=== PATIENT | female | born 1965 | race Caucasian/White ===

== ENCOUNTER 2025-05-01 07:59 | Emergency (ER) | payer OTHER, SELFPAY ==
[2025-05-01] VITALS (8 sets, daily range): BP systolic 119–188; BP diastolic 70–107; BMI 31.7
--- NOTE | 2025-05-01 08:31 | ED.GENMED ---
History of Present Illness
General
Chief Complaint: Back Pain
Source: patient
Exam Limitations: none
Time Seen by Provider: 05/01/25 08:08
Nursing documentation reviewed up to this point in time: agreed with
History of Present Illness
History of Present Illness:
The patient is a 59-year-old female with a past medical history of kidney stones who reports fairly sudden onset of left-sided abdominal pain and left lower back pain that woke her up out of her sleep at 5 AM this morning. Patient reports pain has
been fairly constant. She describes it as severe. Nothing makes it better or worse. She denies any nausea, vomiting, fevers and chills. She denies urinary symptoms such as frequency, hematuria, and burning. She reports it feels somewhat similar
to what it felt like when she passed a kidney stone over 10 years ago. Patient also reports over the last several weeks her bowel movements look different. She describes them as ' thin' and narrow stool. Patient reports over the last few days she
has taken fiber. She reports it has been weeks since she had a normal bowel movement. She denies blood in her stool. She denies loose stool. She reports she had a normal colonoscopy a few years ago. Patient reports that she feels short of
breath she believes due to her abdominal pain. She denies chest pain, cough and congestion.
Past History
Past History
ED Past Medical History: Other (Kidney stone December 2010)
ED Past Surgical History:
Social History
Tobacco: Non-smoker
Alcohol: None
Drug: None
Personal:
Living: with family
Employment: Not employed (homemaker)
Family History
Family History: Hypertension
Review of Systems
Review of Systems
Allergies reviewed?: Yes
All Other Systems: ROS reviewed and negative except as documented in HPI and ROS
Constitutional: Reports no symptoms
EENT: Reports no symptoms
Respiratory: Reports trouble breathing
Cardiac: Reports no symptoms
ABD/GI: Reports abdominal pain
: Reports no symptoms
Musculoskeletal: Reports back pain
Skin: Reports no symptoms
Neurological: Reports no symptoms
Endocrine: Reports no symptoms
Hematologic/Lymphatic: Reports no symptoms
Psychiatric: Reports no symptoms
Phy Exam
Physical Exam
Physical Exam:
Physical Exam
General: Patient appears uncomfortable, holding her left lower back
Neck: supple. no meningeal signs. normal psoterior pharynx
Heart: s1/s2 regular rate and rhythm, no murmur. equal radial pulses.
Lungs: no acute respiratory distress. clear bilaterally
Abdomen: normal bowel sounds. not tender. no CVAT. Nontender throughout and soft.
Neuro: alert and oriented. no focal neurological deficits
Skin: no rash
Psychiatric: well kept. interactive and cooperative
Extremities: no edema. no calf tenderness. negative homans. good distal pulses
Course
Orders/Labs/Results
Orders:
Orders
05/01/25 08:19
Ketorolac [Toradol] 30 mg IV NOW STA
05/01/25 08:20
HYDROmorphone [Dilaudid] 0.5 mg IV NOW STA
05/01/25 08:22
Electrocardiogram (*1) Urgent
Reason for Study: Shortness of Breath
EKG- Treatment ONCE
05/01/25 08:45
Complete Blood Count/With Diff Urgent
Comprehensive Metabolic Panel Urgent
Lipase Urgent
Urinalysis Reflex To Culture Urgent
Date Specimen was Collected: 05/01/25
Time Specimen was Collected: 08:36
Urine Microscopic Reflex Cult Urgent
Urine Culture Urgent
MELYSSA Source: U
Specimen Description:
Date Specimen was Collected: 05/01/25
Time Specimen was Collected: 08:36
05/01/25 09:07
CT Abd/pel Without Iv Or Oral Urgent
Comment:
Reason For Exam: left mid/ lower ab pain and L flank pain
05/01/25 09:59
0.9% Sodium Chloride 1000 ml [Nss] 1,000 ml IV BOLUS
05/01/25 10:31
HYDROmorphone [Dilaudid] 0.5 mg IV NOW STA
05/01/25 11:30
Oxycodone Controlled Release [Oxycontin (Controlled Release)] 10 mg PO NOW STA
Abnormal Lab Results
05/01/25
08:45
MPV 10.6 H fL
(7.4-10.4)
BUN 20 H mg/dl
(7-17)
Glucose 106 H mg/dl
(70-99)
Ur Occult Blood Reflex 4+ A
(Negative)
Leukocyte Esterase Rfl 1+ A
(Negative)
Urine RBC 50-60 A /HPF
(0-2)
Urine Bacteria (Reflex) Few A
(Negative)
Urine Albumin (Reflex) 2+ A
(Neg - Trace)
05/01/25 08:45
05/01/25 08:45
Vital Signs
Initial and Last Documented VS:
Initial Vital Signs
Temp Pulse Resp BP Pulse Ox
97.8 F 68 18 182/107 100
05/01/25 08:01 05/01/25 08:01 05/01/25 08:01 05/01/25 08:01 05/01/25 08:01
Last Documented Vital Signs
Temp Pulse Resp BP Pulse Ox
98.1 F 68 15 119/74 97
05/01/25 13:28 05/01/25 13:28 05/01/25 13:28 05/01/25 13:28 05/01/25 13:28
MDM/Problems Addressed
Differential Diagnosis Includes:
Acute renal colic, acute diverticulitis, acute constipation
MDM/Problems Addressed:
Patient presents with acute mid and lower left abdominal pain as well as left lower back pain
Chronic conditions affecting care:
Patient has known kidney stones, it is possible she has a recurrent stone that is passing into her ureter
Acute Exacerbation and/or Progression of Chronic Illness:
Patient is acutely hypertensive, I suspect this is due to pain. Will reassess blood pressure after patient's pain is treated
Acute Exacerbation and/or Progression of Chronic Illness: HTN
*Radiology
Radiology exam reviewed: radiology read reviewed
*Pulse Oximetry
SaO2: 100
Oxygen Mode of Delivery: Room air
Patient hypoxic: no
*EKG
Interpreted by ED Provider?: Yes
Interpretation: normal
Comparison EKG: no comparison EKG present
Rate: normal
Rhythm: sinus
[place]: normal axis
Interval: normal interval
QRS Pattern: normal QRS
Ischemia: no ischemia
*Wharf Operator Interpretation
Rate: normal
Interpretation: normal
Rhythm: sinus
*Critical Care Note
Total Time (30-74mins, 75-104mins- exclusive of procedures): Not Applicable
Data Reviewed
Review of Other/Old Records Reveals: Labs (Creatinine normal in 2015. Labs reviewed by me.)
Patient Management
Social determinants of health affecting care: Living situation and Strong social support
Escalation/DeEscalation of care consider admission/obs:
Patient feels better with IV pain medication and oral oxycodone. Patient watched and observed in the ED for numerous hours. She feels comfortable going home. There is no sign of UTI, urosepsis or intractable pain at this time.
ED Attending Note
-
Portions of this chart may have been created with voice recognition software.� Occasional wrong word or��sound alike� substitutions may have occurred due to the inherent limitations of voice recognition software.
Discharge Plan
Departure
Patient Disposition: Home (Routine Discharge)
Date of Disposition: 05/01/25
Time of Disposition: 12:48
Patient with high blood pressure during this ER visit?: Yes
Condition: Good
Covid-19: Not Applicable
Discharge Problem:
Renal colic on left side
Instructions: Kidney stones in adults, BLOOD PRESSURE
Prescriptions:
New
oxycodone 5 mg tablet
5 mg PO Q6H PRN (Reason: Pain) Qty: 10 0RF
No Action
No Meds [No Current Medications]
0
hydrocodone-acetaminophen 5 MG/500 MG tablet
1 tab PO Q6HPRN PRN (Reason: PAIN) Qty: 20 0RF
ibuprofen 600 MG tablet
600 mg PO Q6H Qty: 30 0RF
ondansetron 4 MG tablet,disintegrating
4 mg PO TIDPRN PRN (Reason: NAUSEA) Qty: 12 0RF
ondansetron 4 MG tablet,disintegrating
4 mg PO TIDPRN PRN (Reason: NAUSEA) Qty: 12 0RF
Referrals:
Yehuda Garcia MD [Active, Urology]
Referral Note: Call today to make an appointment to see in the office in 7 to 10 days
UNKNOWN - PT DOES,NOT KNOW [Family Provider]
Activity Restrictions/Additional Instructions:
Take Motrin 600 mg every 6-8 hours for pain. Your next dose of Motrin can be taken at 2:30 PM today (or later). Your next dose of oxycodone can be taken at 4 PM or later.
Take 1 capful of MiraLAX mixed in a glass of water once daily until you have a good large soft bowel movement. If you do not see improvement in your bowel movement amount and shape within 2 to 3 days even with the MiraLAX, please call your
tool maker apprentice to report changes in your stool
Interventions
Interventions:
*Risk Screen - Suicide Last Done: 05/01/25 08:01
*General Assessment Last Done: 05/01/25 08:01
*Neglect/Abuse Screening Last Done: 05/01/25 08:01
*ED- Fall Risk Assessment Last Done: 05/01/25 08:31
*ED COVID-19 Vaccine History Last Done: 05/01/25 08:31
*Nursing Disposition Last Done: 05/01/25 13:28
ED-Musculoskeletal Assessment Last Done: 05/01/25 08:32
Discharge Date and Time
Discharge Date/Time: 05/01/25 13:29
Print Language: ALBANIAN
[2025-05-01] MEDS: TORADOL 30 MG IV (08:38)
[2025-05-01] MEDS: DILAUDID 0.5 MG IV ×2 (08:39→10:37)
[2025-05-01 09:01] LABS: Urine Character Clear (Clear)
[2025-05-01 09:02] LABS: Hematocrit 40.4 % (37.0-47.0); Hemoglobin 13.7 g/dL (12.0-16.0); Mean Corp Hgb Conc. 33.9 g/dL (33.0-37.0); Mean Corpuscular Volume 83.1 fL (81.0-99.0); Nucleated Red Blood Cells % 0 %; Platelet Count 235 10^3/uL (130-400); Red Cell Dist. Width 12.5 % (11.5-14.5)
[2025-05-01 09:25] LABS: ALT (SGPT) 29 U/L (0-35); AST (SGOT) 26 U/L (14-36); Albumin 4.5 g/dl (3.5-5.0); Alkaline Phosphatase 74 U/L (38-126); Blood Urea Nitrogen 20 mg/dl (7-17); Calcium 9.5 mg/dl (8.4-10.2); Carbon Dioxide 26 mmol/L (22-30); Chloride 107 mmol/L (98-107); Estimated Creatinine Clearance 91 ml/min; Glucose 106 mg/dl (70-99); Lipase 277 U/L (23-300); Potassium 4.2 mmol/L (3.5-5.1); Sodium 139 mmol/L (135-145); Total Protein 7.4 g/dl (6.3-8.2); eGFR > 60.00
[2025-05-01 09:41] LABS: Urine White Cell 0-2 /HPF (0-5)
[2025-05-01 09:43] LABS: Urine Squamous Cell >30 /LPF (Few)
[2025-05-01 09:45] LABS: Urine Red Blood Cell 50-60 /HPF (0-2)
[2025-05-01] MEDS: NSS 1000 IV (10:13)
[2025-05-01] MEDS: OXYCONTIN (CONTROLLED RELEASE) 10 MG PO (11:42)
== END 2025-05-01 13:29 | disposition home or self-care (01) ==
LOC: EMR 07:59
PROVIDERS: EMERGENCY PHYSICIAN Emergency Medicine
DX: N13.2 Hydronephrosis with renal and ureteral calculous obstruction (principal); Z87.442 Personal history of urinary calculi; R03.0 Elevated blood-pressure reading, without diagnosis of hypertension; Z82.49 Family history of ischemic heart disease and other diseases of the circulatory system
CPT/HCPCS: 99284; 96374; 96375; 96376; 96361; 74176; 80053; 81003; 81015; 83690; 85025; 87086; 93005